=== PATIENT | male | born 2005 | race Caucasian/White ===

== ENCOUNTER 2023-01-22 20:41 | Emergency (ER) | payer SELFPAY ==
[2023-01-22] MEDS ORDERED: Ibuprofen 600 MG Tab PO ONE (20:55)
[2023-01-22 21:41] LABS: CORONAVIRUS COVID-19 NAA NEGATIVE (NEGATIVE); INFLUENZA A NAA NEGATIVE (NEGATIVE); INFLUENZA B NAA NEGATIVE (NEGATIVE); RESPIRATORY SYNCYTIAL VIR NAA NEGATIVE (NEGATIVE)
[2023-01-22] MEDS ORDERED: Amoxicillin/Clavulanate K 875-125 MG Tab PO ONE (21:42)
[2023-01-22 21:52] VITALS: BP 109/60; PULSE 94
== END 2023-01-22 21:51 | disposition home or self-care (01) ==
LOC: MW.ED 20:41
DX: J01.00 Acute maxillary sinusitis, unspecified (principal); J02.9 Acute pharyngitis, unspecified; Z20.822 Contact with and (suspected) exposure to COVID-19
CPT/HCPCS: 0241U; 87651; 99283; A9270

== ENCOUNTER 2023-04-05 02:26 | Emergency (ER) | payer OTHER ==
[2023-04-05] MEDS: Proparacaine 0.5% Ophth Soln 15 ML Bottle EYEBOTH STA (03:58)
[2023-04-05] MEDS: Tetracaine HCl/PF 0.5% 4 ML Bottle ONE (04:06)
[2023-04-05] MEDS: Tetracaine HCl/PF 0.5% 4 ML Bottle EYEBOTH STA (04:48)
[2023-04-05] MEDS: Fluorescein 1 MG Ophth Strip EYEBOTH ONE (04:48)
[2023-04-05] MEDS: Erythromycin Base 0.5% Ophth Oint 1 GM Tube EYEBOTH ONE (05:30)
[2023-04-05] MEDS: Bacitracin/Polymyxin B Ophth Oint 3.5 GM Tube EYEBOTH STA (05:56)
[2023-04-05] MEDS: Bacitracin/Neomycin/Polymyxin B Ophth Oint 3.5 GM Tube EYEBOTH STA (05:58)
[2023-04-05 06:02] VITALS: BP 110/60; PULSE 68
== END 2023-04-05 06:01 | disposition home or self-care (01) ==
LOC: MW.ED 02:26
DX: H57.89 Other specified disorders of eye and adnexa (principal); W89.0XXA Exposure to welding light (arc), initial encounter
CPT/HCPCS: 99283; A9270; J3490